=== PATIENT | female | born 1950 | race Caucasian/White ===

== ENCOUNTER 2021-02-07 14:21 | Emergency (ER) | payer BC, MEDICAID ==
[~2021-02-07] VITALS: Ht 162.6 cm; Wt 101.4 kg
[~2021-02-07 14:21] MED LIST: IBUP-1572 PO
[2021-02-07 15:12] LABS: BASOPHILS % (AUTO) 0.5 % (0-1); EOSINOPHILS # (AUTO) 0.1 X10'3 (0-0.9); EOSINOPHILS % (AUTO) 1.3 % (0-6); HEMATOCRIT 45.2 % (35.0-45.0); HEMOGLOBIN 15.5 g/dl (12.0-16.0); LYMPHOCYTES # (AUTO) 2.1 X10'3 (1.1-4.8); LYMPHOCYTES % (AUTO) 29.5 % (21-51); MEAN CORPUSCULAR HEMOGLOBIN 31.3 PG (27.0-31.0); MEAN CORPUSCULAR HGB CONC 34.3 g/dL (33.0-36.5); MEAN CORPUSCULAR VOLUME 91.4 FL (78-98); MEAN PLATELET VOLUME 7.8 FL (7.4-10.4); MONOCYTES # (AUTO) 0.4 X10'3 (0-0.9); MONOCYTES % (AUTO) 6.2 % (2-12); NEUTROPHILS # (AUTO) 4.4 X10'3 (1.8-7.7); NEUTROPHILS % (AUTO) 62.5 % (42-75); PLATELET COUNT 286 X10'3 (140-440); RED BLOOD COUNT 4.94 X10'6 (4.20-5.60); RED CELL DISTRIBUTION WIDTH 13.3 % (11.5-14.5)
[2021-02-07 15:15] LABS: CLARITY,URINE SLIGHTLY CLOUDY (Clear); COLOR,URINE STRAW (Yellow); GLUCOSE, URINE NEGATIVE (Neg); KETONES,URINE NEGATIVE (Neg); LEUKOCYTE ESTERASE ,URINE NEGATIVE (Neg); NITRITES, URINE NEGATIVE (Neg); OCCULT BLOOD,URINE TRACE-INTACT (Neg); PROTEIN,URINE NEGATIVE (Neg); UROBILINOGEN,URINE 0.2 E.U/dL (0.2-1.0)
[2021-02-07 15:16] LABS: UA COLLECTION TYPE CLN CATCH MIDSTREAM
[2021-02-07 15:23] LABS: SQUAMOUS EPITHELIAL CELL,UR MODERATE /LPF (FEW)
[2021-02-07 15:27] LABS: BACTERIA,URINE FEW /HPF (Neg); RBC,URINE NONE SEEN /HPF (0-2); WBC,URINE 0-4 /HPF (0-4); YEAST FEW /HPF (NEGATIVE)
[2021-02-07 15:29] LABS: ALANINE AMINOTRANSFERASE 44 U/L (12-78); ALBUMIN 4.2 G/DL (3.4-5.0); ALBUMIN/GLOBULIN RATIO 1.2 (1.1-1.5); ALKALINE PHOSPHATASE 86 IU/L (46-116); ANION GAP 9 (8-16); ASPARTATE AMINO TRANSFERASE 25 U/L (10-37); BILIRUBIN,TOTAL 0.6 MG/DL (0.1-1.0); BLOOD UREA NITROGEN 10 MG/DL (7-18); BUN/CREATININE RATIO 8.8 (6.6-38.0); CALCIUM 8.9 MG/DL (8.5-10.1); CHLORIDE 104 MMOL/L (99-107); CREATININE 1.14 MG/DL (0.40-0.90); GLUCOSE 118 MG/DL (70-104); LIPASE 168 U/L (73-393); SODIUM 139 MMOL/L (135-145); TOTAL CARBON DIOXIDE 25.6 MMOL/L (24-32); TOTAL PROTEIN 7.8 G/DL (6.4-8.2); eGFR 47 ML/MIN
[2021-02-07] MEDS ORDERED: normal saline 1000ml 1,000 ML IV ONE (16:55)
[2021-02-07] MEDS ORDERED: ketorolac tromethamine 15mg/ml inj. IM ONE (16:55)
[2021-02-07 17:06] VITALS: BP 192/103
--- NOTE | 2021-02-07 17:18 | NUR ---
Pt refused iv at this time. KIP Ashby notified, hold IV fluid for now until results CT then reassess
[2021-02-07] MEDS ORDERED: CYCL-1 PO (17:49)
[2021-02-07] MEDS ORDERED: ACET-1025 PO (17:49)
== END 2021-02-07 18:02 | disposition home or self-care (01) ==
LOC: ER 14:22
DX: R10.9 Unspecified abdominal pain (principal); N18.9 Chronic kidney disease, unspecified; Z79.899 Other long term (current) drug therapy; Z90.49 Acquired absence of other specified parts of digestive tract; Z72.89 Other problems related to lifestyle
CPT/HCPCS: 36415; 74176; 80053; 81001; 83690; 85025; 96372; 99284; J1885

== ENCOUNTER 2023-06-15 17:58 | Emergency (ER) | payer OTHER, MEDICAID ==
[~2023-06-15] VITALS: Ht 165.1 cm; Wt 94.1 kg
[~2023-06-15 17:58] MED LIST changes: +CYCL-1 PO
[2023-06-15 18:13] VITALS: TEMP 98.5
[2023-06-15 19:02] LABS: BASOPHILS # (AUTO) 0.1 X10'3 (0-0.2); BASOPHILS % (AUTO) 0.7 % (0-1); EOSINOPHILS % (AUTO) 0.3 % (0-6); HEMATOCRIT 42.3 % (35.0-45.0); HEMOGLOBIN 14.4 g/dl (12.0-16.0); LYMPHOCYTES % (AUTO) 6.4 % (21-51); MEAN CORPUSCULAR HEMOGLOBIN 30.9 PG (27.0-31.0); MEAN CORPUSCULAR HGB CONC 34.1 g/dL (33.0-36.5); MEAN CORPUSCULAR VOLUME 90.6 FL (78-98); MEAN PLATELET VOLUME 7.1 FL (7.4-10.4); MONOCYTES # (AUTO) 0.9 X10'3 (0-0.9); MONOCYTES % (AUTO) 5.7 % (2-12); NEUTROPHILS # (AUTO) 14.2 X10'3 (1.8-7.7); NEUTROPHILS % (AUTO) 86.9 % (42-75); PLATELET COUNT 353 X10'3 (140-440); RED BLOOD COUNT 4.68 X10'6 (4.20-5.60); RED CELL DISTRIBUTION WIDTH 13.6 % (11.5-14.5); WHITE BLOOD COUNT 16.3 X10'3 (4.5-11.0)
[2023-06-15 19:19] LABS: ALANINE AMINOTRANSFERASE 22 U/L (12-78); ALBUMIN 3.4 G/DL (3.4-5.0); ALBUMIN/GLOBULIN RATIO 0.9 (1.1-1.5); ALKALINE PHOSPHATASE 133 IU/L (46-116); ANION GAP 12 (8-16); ASPARTATE AMINO TRANSFERASE 25 U/L (10-37); BLOOD UREA NITROGEN 8 MG/DL (7-18); BUN/CREATININE RATIO 7.6 (10.0-20.0); CALCIUM 9.1 MG/DL (8.5-10.1); CHLORIDE 97 MMOL/L (99-107); CREATININE 1.05 MG/DL (0.40-0.90); GLUCOSE 243 MG/DL (70-104); LIPASE 50 U/L (16-77); POTASSIUM 3.2 MMOL/L (3.5-5.1); SODIUM 134 MMOL/L (135-145); TOTAL CARBON DIOXIDE 25.5 MMOL/L (24-32); TOTAL PROTEIN 7.3 G/DL (6.4-8.2); eCRCL 42 ML/MIN; eGFR 51 ML/MIN
--- NOTE | 2023-06-15 20:07 | NUR ---
PT STATED TO REGISTRATION SHE WAS GOING TO LEAVE DUE TO WAIT TIME. PT FOUND IN BUSHES BY CAR AND STATES SHE STEPPED OFF CURB WRONG AND FELL ON BOTTOM. PT STATES HAS SPINAL STENOSIS AND SOMETIMES THIS HAPPENS. PT FOUND BY [employer]ES WORKER CARLOS AND ASSISTED TO WHEELCHAIR. PER CARLOS, PT WAS DIFFICULT TO STAND UP AND HAD TROUBLE WITH BALANCE. PT ALERT AND ORIENTED X4. PT NIH 0, STROKE SCALE NEGATIVE. DR ABRAMS NOTIFIED OF PT EPISODE OUTSIDE. PT STILL OPTING TO LEAVE PROIR TO BEING SEEN BY PROVIDER. VITALS TAKEN AND VSS. PT STATES SHE IS DRIVING HERSELF HOME, PT AMBULATED AND GAIT STEADY WITH NO ASSISTANCE. PT ADVISED TO STAY TO BE SEEN BY DOCTOR. Addendum: 06/15/23 at 2015 by ENEIDA AMEND NOTE. PT HR 125, DR ABRAMS NOTIFIED.
[2023-06-15 20:14] VITALS: BP 165/98; PULSE 125; RESP 18; O2SAT 96
--- NOTE | 2023-06-15 20:44 | NUR ---
PT DECIDED TO STAY IN LOBBY AND WAIT TO BE SEEN.
[2023-06-16] MEDS ORDERED: POLY119P2 PO (21:36)
== END 2023-06-16 01:02 | disposition left against medical advice (07) ==
LOC: ER 17:58
DX: K59.00 Constipation, unspecified (principal); Z53.21 Procedure and treatment not carried out due to patient leaving prior to being seen by health care provider
CPT/HCPCS: 36415; 74018; 80053; 83690; 85025; 99281

== ENCOUNTER 2023-06-16 13:41 | Emergency (ER) | payer OTHER, MEDICAID ==
[~2023-06-16] VITALS: Ht 165.1 cm; Wt 93.2 kg
[2023-06-16 15:09] LABS: BASOPHILS # (AUTO) 0.1 X10'3 (0-0.2); BASOPHILS % (AUTO) 0.5 % (0-1); EOSINOPHILS # (AUTO) 0.1 X10'3 (0-0.9); EOSINOPHILS % (AUTO) 0.5 % (0-6); HEMATOCRIT 41.7 % (35.0-45.0); HEMOGLOBIN 14.3 g/dl (12.0-16.0); LYMPHOCYTES # (AUTO) 1.9 X10'3 (1.1-4.8); LYMPHOCYTES % (AUTO) 18.3 % (21-51); MEAN CORPUSCULAR HEMOGLOBIN 31.2 PG (27.0-31.0); MEAN CORPUSCULAR HGB CONC 34.3 g/dL (33.0-36.5); MONOCYTES # (AUTO) 0.8 X10'3 (0-0.9); MONOCYTES % (AUTO) 7.7 % (2-12); NEUTROPHILS # (AUTO) 7.6 X10'3 (1.8-7.7); PLATELET COUNT 360 X10'3 (140-440); RED BLOOD COUNT 4.59 X10'6 (4.20-5.60); RED CELL DISTRIBUTION WIDTH 13.5 % (11.5-14.5); WHITE BLOOD COUNT 10.4 X10'3 (4.5-11.0)
[2023-06-16 15:26] LABS: ALANINE AMINOTRANSFERASE 23 U/L (12-78); ALBUMIN 3.4 G/DL (3.4-5.0); ALBUMIN/GLOBULIN RATIO 0.9 (1.1-1.5); ALKALINE PHOSPHATASE 130 IU/L (46-116); ANION GAP 9 (8-16); ASPARTATE AMINO TRANSFERASE 16 U/L (10-37); BILIRUBIN,TOTAL 0.8 MG/DL (0.1-1.0); BLOOD UREA NITROGEN 9 MG/DL (7-18); BUN/CREATININE RATIO 8.5 (10.0-20.0); CALCIUM 9.5 MG/DL (8.5-10.1); CHLORIDE 98 MMOL/L (99-107); CREATININE 1.06 MG/DL (0.40-0.90); GLUCOSE 241 MG/DL (70-104); LIPASE 64 U/L (16-77); POTASSIUM 3.2 MMOL/L (3.5-5.1); SODIUM 135 MMOL/L (135-145); TOTAL CARBON DIOXIDE 28.3 MMOL/L (24-32); TOTAL PROTEIN 7.4 G/DL (6.4-8.2); eCRCL 42 ML/MIN; eGFR 51 ML/MIN
[2023-06-16 16:59] VITALS: TEMP 97.9
[2023-06-16] MEDS ORDERED: magnesium citrate 296ml oral solution PO ONE (18:45)
[2023-06-16] MEDS ORDERED: POLY119P2 PO (21:36)
[2023-06-16 21:53] VITALS: BP 135/92; PULSE 106; RESP 18; O2SAT 95
[2023-06-17] MEDS ORDERED: POTASSIUM BICARB 20meq eff tab 20 MEQ TABLET.EFF PO ONE (08:00)
== END 2023-06-16 21:55 | disposition home or self-care (01) ==
LOC: ER 13:43
DX: K59.00 Constipation, unspecified (principal); E87.6 Hypokalemia
CPT/HCPCS: 36415; 74176; 80053; 83690; 85025; 99284